=== PATIENT | male | born 1955 | race Caucasian/White ===

== ENCOUNTER 2016-11-13 04:18 | Emergency (ER) | payer MEDICARE ==
[2016-11-13] MEDS ORDERED: Ibuprofen 800 MG TAB ONE (04:40)
[2016-11-13] MEDS ORDERED: HYDROcodone/Acetaminophen 10/325 mg Tablet ONE (04:45)
[2016-11-13] MEDS ORDERED: Lorazepam 1 MG TAB ONE (05:18)
[2016-11-13] MEDS ORDERED: Ketorolac Tromethamine 30 MG/ML VIAL ONE (05:46)
--- NOTE | 2016-11-13 09:36 | ERRECORD ---
[facility] EMERGENCY RECORD HPI BACK CHIEF COMPLAINT: Patient presents for evaluation of pain, to the right lower back. (04:40 LHOD) HISTORIAN: History provided by patient. (04:40 LHOD) MECHANISM OF INJURY: No apparent mechanism of injury. (04:44 LHOD) LOCATION: Radiation to the back, RADIATING TO RIGHT BUTTOCK. (04:43 LHOD) QUALITY: Pain is sharp in nature, described as shooting. (04:43 LHOD) TIME COURSE: PT REPORTS SINCE 1987 HE HAS HAD LUMBAR BACK PROBLEMS AND PREVIOUS SURGERIES. HE REPORTS YESTERDAY AROUND 1600 HE STEPPED DOWN OFF A 2 STEPLADDER. DENIES HE STUMBLED, BUT REPORTS HE MUST HAVE TWISTED SINCE HE HAS HAD INCREASING RIGHT LUMBAR PAIN RADIATING DOWN RIGHT HIP / LEG. (04:40 LHOD) ASSOCIATED WITH: No associated abdominal pain, No associated bladder incontinence, No associated bowel incontinence, No associated dysuria, No associated fever, No associated inability to ambulate, No associated motor weakness, No associated numbness, No associated problems with urination, Associated with radiation of pain, to the right buttock, Associated with sciatica, on the right. (04:40 LHOD) EXACERBATED BY: Patient's condition exacerbated by flexion, Patient's condition exacerbated by movement, Patient's condition exacerbated by rotation, Patient's condition exacerbated by walking. (04:40 LHOD) RELIEVED BY: Patient's condition relieved by nothing, Patient's condition relieved by TOOK 2 HYDROCODONE APPROX. 1900. (04:40 LHOD) RISK FACTORS: No epidural bleed risk factors. (04:40 LHOD) ROS (04:44 LHOD) CONSTITUTIONAL: Historian denies fever. CARDIOVASCULAR: Historian denies chest pain. RESPIRATORY: Historian denies shortness of breath. GI: Historian denies abdominal pain, denies vomiting. GENITOURINARY MALE: Historian denies dysuria, denies incontinence. MUSCULOSKELETAL: Historian reports back pain, denies neck pain. SKIN: Historian denies rash. NEUROLOGIC: Historian denies focal weakness, denies headache. HEMO/LYMPHATIC: Historian denies easy bruising. NOTES: All systems reviewed, negative except as described above. PAST MEDICAL HISTORY MEDICAL HISTORY: Past medical history includes endocrine disease, hypothyroidism, Past medical history includes history of hypertension, which has been treated, Patient is compliant, Past medical history includes musculoskeletal disorder, chronic back pain, DISK PROBLEMS IN NECK AND LOWER BACK. Notes: States he had gout once before in sternum after CABG. (04:28 JDEA) MALE SURGICAL HISTORY: Surgical history of appendectomy, &a-1R&a+25V*p+0X*w0903L*c202B*c15G*c2P*p-0X&a-25V&a+1R Name: Ted Starr : 1955 M60 MedRec: [id number] AcctNum: [id number] Prepared: MonNov 22, 2016 09:35 by Interface Page [address] [facility] EMERGENCY RECORD Surgical history of coronary artery bypass graft surgery, four vessels, Surgical history of orthopedic surgery, BACK, NECK. (04:28 JDEA) PSYCHIATRIC HISTORY: Notes: Psychiatric history includes, depression, Psychiatric history includes patient currently being under outpatient treatment, no history of suicidal ideations, No history of suicide attempts, No history of hallucinations, No history of homicidal ideations, No history of violence towards others, No history of post-traumatic stress disorder, No history of psychosis. (04:28 JDEA) SOCIAL HISTORY: Patient denies drug use, Lives at home, with family, Patient denies alcohol use, Patient denies drug use, Patient currently uses tobacco, smokes cigarettes, daily, Patient smokes 1/2 packs per day, Social History includes. (04:28 JDEA) NOTES: Nursing records reviewed. (04:48 LHOD) KNOWN ALLERGIES No Known Drug Allergies CURRENT MEDICATIONS (04:29 JDEA) aspirin: TABLET : Strength - 325 mg : ORAL Patient Dose: 1 tab(s) Oral once a day. carvedilol: TABLET : Strength - 25 mg : ORAL Patient Dose: 25 mg Oral 2 times a day (with meals). levothyroxine: TABLET : Strength - 75 mcg : ORAL Patient Dose: 125 mcg Oral once a day. Dose increased. lisinopril: TABLET : Strength - 20 mg : ORAL Patient Dose: 10 mg Oral 2 times a day. Dose decreased. VITAL SIGNS VITAL SIGNS: BP: 171/91, Pulse: 82, Resp: 18, Temp: 98 (Oral), Pain: 10, O2 sat: 98 on Room Air, Time: 11/13/2016 04:25. (04:25 JDEA) BP: 170/89, Pulse: 78, Resp: 20, Pain: 9, O2 sat: 97 on Room Air, Time: 11/13/2016 05:36. (05:36 JDEA) PHYSICAL EXAM (04:45 LHOD) CONSTITUTIONAL: Vital Signs Reviewed, Patient afebrile, Pulse normal, Blood pressure, hypertensive, Respiratory rate normal, Patient appears, in severe pain distress, Patient alert and oriented to person, place and time, APPEAR MUCH OLDER THAN STATED AGE. STANDS SLIGHTLY STOOPED FORWARD. ABLE TO SLOWLY LAY ON STRETCHER. NECK: Neck exam included findings of normal range of motion, Trachea midline. RESPIRATORY CHEST: Respiratory exam included findings of no respiratory distress, Breath sounds clear. &a-1R&a+25V*p+0X*c6451W*c202B*c15G*c2P*p-0X&a-25V&a+1R Name: Ted Starr : 1955 M60 MedRec: [id number] AcctNum: [id number] Prepared: MonNov 22, 2016 09:35 by Interface Page [address] [facility] EMERGENCY RECORD CARDIOVASCULAR: Cardiovascular exam included findings of heart rate regular rate and rhythm. ABDOMEN MALE: Abdominal exam included findings of abdomen nontender, DISTENDED WITHOUT GUARDING. BACK: Tenderness, paraspinal to the right lower, Straight leg raise, with pain on the right at 30 degrees. LOWER EXTREMITY: Lower extremity exam included findings of inspection normal, Range of motion normal, Sensation intact, Pedal pulse normal, SOME DISCOMFORT WITH STRAIGHT LEG RAISING OF BOTH LEGS, BUT GREATER ON RIGHT. NEURO: Speech normal, ABLE TO STAND, BUT WALKED BENT FORWARD WITH OBVIOUS BACK PAIN. SKIN: no rash. MEDICATION ADMINISTRATION SUMMARY Drug Name: Toradol intramuscular, Dose Ordered: 30 mg, Route: Intramuscular, Status: Given, Time: 05:50 11/13/2016, Drug Name: Ativan oral, Dose Ordered: 1 mg, Route: Oral, Status: Given, Time: 05:22 11/13/2016, Drug Name: [place], Dose Ordered: 10 mg, Route: Oral, Status: Given, Time: 04:47 11/13/2016, Drug Name: ibuprofen, Dose Ordered: 800 mg, Route: Oral, Status: Given, Time: 04:44 11/13/2016, Detailed record available in Medication Service section. DOCTOR NOTES (05:18 LHOD) TEXT: 0515--PT STILL TRYING TO GET COMFORTABLE. REPORTS HAS HAD TO USE VALIUM AND STEROID IN PAST WHICH HELPED AFTER 3-4 DAYS. PROBLEM LIST No recorded problems DIAGNOSIS (05:46 LHOD) FINAL: PRIMARY: LUMBAR PAIN WITH SCIATICA RIGHT BUTTOCK. PRESCRIPTION (05:47 LHOD) Valium oral: TABLET : 5 mg : ORAL : Quantity: 1 Unit: tab(s) Route: ORAL Schedule: every 6 hours PRN Dispense: 10 May substitute. Refills: No Refills . NOTES: No Refills. DISPOSITION PATIENT: Disposition Type: Discharge, Disposition: *Discharge Home, Condition: Good. (05:46 LHOD) Patient left the department. (09:28 [facility] Wen: &a-1R&a+25V*p+0X*e3292S*c202B*c15G*c2P*p-0X&a-25V&a+1R Name: Ted Starr : 1955 M60 MedRec: [id number] AcctNum: [id number] Prepared: MonNov 22, 2016 09:35 by Interface Page [address] [facility] EMERGENCY RECORD STANLEY=EVANGELINA Patel, Nicole LHOD=MD Erwin, Ludin [facility]=EVANGELINA Song, Leon &a-1R&a+25V*p+0X*z1835N*c202B*c15G*c2P*p-0X&a-25V&a+1R Name: Ted Satrr : 1955 M60 MedRec: [id number] AcctNum: [id number] Prepared: MonNov 22, 2016 09:35 by Interface Page 4 of 4 pMD [facility]
--- NOTE | 2016-11-13 09:48 | PICIS ---
[facility] EMERGENCY RECORD TRIAGE (MonNov 13, 2016 04:27 JDEA) TRIAGE NOTES: pt in c/o recurrent back pain shoots down right leg. (MonNov 13, 2016 04:27 JDEA) PATIENT: NAME: Ted Starr, AGE: 60, GENDER: male, : Mon1955, TIME OF GREET: MonNov 13, 2016 04:19, PREFERRED LANGUAGE: Moldovan, ETHNICITY: Not or , [facility]: [facility], SSN: [id number], Zip Code: [address], KG WEIGHT: 90.72, PHONE: , , , PERSON ID: [id number], PCP: MD Rockwell Robert. (MonNov 13, 2016 04:27 JDEA) COMPLAINT: BACK PAIN. (MonNov 13, 2016 04:27 JDEA) ADMISSION: URGENCY: 4 Non Urgent, ADMISSION SOURCE: Home, TRANSPORT: Walk-in, BED: TRIAGE. (MonNov 13, 2016 04:27 JDEA) IMMUNIZATIONS: Flu vaccine up to date, Tetanus immunization up to date, Pneumococcal vaccine up to date. (04:28 JDEA) TRIAGE SCREENING: Patient denies suicidal ideation, Patient denies presence of domestic violence. (04:28 JDEA) PROVIDERS: TRIAGE NURSE: Nicole Patel RN. (MonNov 13, 2016 04:27 JDEA) VITAL SIGNS: BP 171/91, Pulse 82, Resp 18, Temp 98, (Oral), Pain 10, O2 Sat 98, on Room Air, Time 11/13/2016 04:25. (04:25 JDEA) PREVIOUS VISIT ALLERGIES: No Known Drug Allergies. (MonNov 13, 2016 04:27 JDEA) No Known Drug Allergies. (04:28 JDEA) KNOWN ALLERGIES No Known Drug Allergies CURRENT MEDICATIONS (04:29 JDEA) aspirin: TABLET : Strength - 325 mg : ORAL Patient Dose: 1 tab(s) Oral once a day. carvedilol: TABLET : Strength - 25 mg : ORAL Patient Dose: 25 mg Oral 2 times a day (with meals). levothyroxine: TABLET : Strength - 75 mcg : ORAL Patient Dose: 125 mcg Oral once a day. Dose increased. lisinopril: TABLET : Strength - 20 mg : ORAL Patient Dose: 10 mg Oral 2 times a day. Dose decreased. VITAL SIGNS VITAL SIGNS: BP: 171/91, Pulse: 82, Resp: 18, Temp: 98 (Oral), Pain: 10, O2 sat: 98 on Room Air, Time: 11/13/2016 04:25. (04:25 JDEA) BP: 170/89, Pulse: 78, Resp: 20, Pain: 9, O2 sat: 97 on Room Air, Time: 11/13/2016 05:36. (05:36 JDEA) NURSING ASSESSMENT: BACK (04:32 JDEA) CONSTITUTIONAL: Complex assessment performed, Patient arrives &a-1R&a+25V*p+0X*i1805G*c202B*c15G*c2P*p-0X&a-25V&a+1R Name: Ted Starr : 1955 M60 MedRec: [id number] AcctNum: [id number] Prepared: MonNov 22, 2016 09:35 by Interface Page 1 of 7 pMD [facility] EMERGENCY RECORD ambulatory, Gait steady, History obtained from patient, Patient appears, uncomfortable, Patient cooperative, Patient alert, Oriented to person, place and time, Skin warm, Skin dry, Skin, pale in color, Mucous membranes pink, Mucous membranes moist, Patient complains of back pain, pt in complains of back pain, states has had previous back surgeries, states that he was diagnosed with sciatic nerve pain. PAIN: aching pain, to the mid back, to the lower back, to the hips, to the sciatica, constant, on a scale 0-10 patient rates pain as 10. BACK: Back assessment findings include no complaints of tenderness, no paresthesias to extremities, Right radial pulse +3(easily palpated, considered normal), Left radial pulse +3(easily palpated, considered normal). NECK: Neck assessment findings include trachea midline, no jugular vein distention noted, Patient not in spinal immobilization on arrival. NOTES: Patient tolerated procedure well. SAFETY: Side rails up, Cart/Stretcher in lowest position, Call light within reach, Hospital ID band on. NURSING PROCEDURE: DISCHARGE NOTE (09:20 SCHI) DISCHARGE: Patient discharged to home, ambulating without assistance, driving self, unaccompanied, Summary of Care printed/ provided, Patient requested and was provided an electronic copy of Discharge Instructions, Transition record given to patient, Discharge instructions given to patient, Simple or moderate discharge teaching performed, Prescriptions given and instructions on side effects given, Medication reconciliation form given, Above person(s) verbalized understanding of discharge instructions and follow-up care, Patient treated and evaluated by physician. BELONGINGS: Belongings and valuables with patient at time of discharge include:, Belongings remain with patient, Valuables remain with patient. NOTES: Emotional support needed and given, Patient tolerated procedure well. Notes: PT IMPROVED, PT ENCOURAGED TO RETURN TO ER WITH NEW OR WORSENING SYMPTOMS. SAFETY: Side rails up, Cart/Stretcher in lowest position, Family at bedside, Hospital ID band on. NURSING PROCEDURE: NURSE NOTES (04:47 JDEA) NURSES NOTES: Notes: pt states will attempt to get a ride home, states is willing to wait the four hour wait time, states is aware that if he leaves after administration of narcotic that pd may be contacted, states will not leave without a ride or without completion of 4 hour wait period. MEDICATION ADMINISTRATION SUMMARY &a-1R&a+25V*p+0X*h8391V*c202B*c15G*c2P*p-0X&a-25V&a+1R Name: Ted Starr : 1955 M60 MedRec: [id number] AcctNum: [id number] Prepared: Laura Nov 22, 2016 09:35 by Interface Page 2 of 7 pMD [facility] EMERGENCY RECORD Drug Name: Toradol intramuscular, Dose Ordered: 30 mg, Route: Intramuscular, Status: Given, Time: 05:50 11/13/2016, Drug Name: Ativan oral, Dose Ordered: 1 mg, Route: Oral, Status: Given, Time: 05:22 11/13/2016, Drug Name: [place], Dose Ordered: 10 mg, Route: Oral, Status: Given, Time: 04:47 11/13/2016, Drug Name: ibuprofen, Dose Ordered: 800 mg, Route: Oral, Status: Given, Time: 04:44 11/13/2016, Detailed record available in Medication Service section. MEDICATION SERVICE Ativan oral: Order: Ativan oral (lorazepam) - Dose: 1 mg : Oral Ordered by: Ludin Hood MD Entered by: Ludin Hood MD [place] Nov 13, 2016 05:16 , Acknowledged by: Nicole Patel RN [place] Nov 13, 2016 05:17 Documented as given by: Nicole Patel RN [place] Nov 13, 2016 05:22 Patient, Medication, Dose, Route and Time verified prior to administration. Amount given: 1 tab, Site: Medication administered P.O., Correct patient, time, route, dose and medication confirmed prior to administration, Patient advised of actions and side-effects prior to administration, Allergies confirmed and medications reviewed prior to administration, Patient in position of comfort, Side rails up, Cart in lowest position, Call light in reach. ibuprofen: Order: ibuprofen - Dose: 800 mg : Oral Ordered by: Ludin Hood MD Entered by: Ludin Hood MD [place] Nov 13, 2016 04:37 , Acknowledged by: Nicole Patel RN [place] Nov 13, 2016 04:37 Documented as given by: Nicole Patel RN [place] Nov 13, 2016 04:44 Patient, Medication, Dose, Route and Time verified prior to administration. Amount given: 800mg, Site: Medication administered P.O., Correct patient, time, route, dose and medication confirmed prior to administration, Patient advised of actions and side-effects prior to administration, Allergies confirmed and medications reviewed prior to administration, Patient in position of comfort, Side rails up, Cart in lowest position, Call light in reach. [place]: Order: [place] (hydrocodone bitartrate/acetaminophen) - Dose: 10 mg : Oral Ordered by: Ludin Hood MD Entered by: Ludin Hood MD [place] Nov 13, 2016 04:37 , Acknowledged by: Nicole Patel RN [place] Nov 13, 2016 04:38 Documented as given by: Nicole Patel RN [place] Nov 13, 2016 04:47 Patient, Medication, Dose, Route and Time verified prior to administration. Amount given: 1 tab, Site: Medication administered P.O., Correct patient, time, route, dose and medication confirmed prior to administration, Patient advised of actions and side-effects prior to &a-1R&a+25V*p+0X*n1834O*c202B*c15G*c2P*p-0X&a-25V&a+1R Name: Ted Starr : 1955 M60 MedRec: [id number] AcctNum: [id number] Prepared: MonNov 22, 2016 09:35 by Interface Page 3 of 7 pMD [facility] EMERGENCY RECORD administration, Allergies confirmed and medications reviewed prior to administration, Patient in position of comfort, Side rails up, Cart in lowest position, Call light in reach. Toradol intramuscular: Order: Toradol intramuscular (ketorolac tromethamine) - Dose: 30 mg : Intramuscular Ordered by: Ludin Hood MD Entered by: MD Kiki Solis Nov 13, 2016 05:45 , Acknowledged by: EVANGELINA Johnson Nov 13, 2016 05:46 Documented as given by: Nicole Patel RN [place] Nov 13, 2016 05:50 Patient, Medication, Dose, Route and Time verified prior to administration. IM medication, Amount given: 30mg, Medication administered to right thigh, Correct patient, time, route, dose and medication confirmed prior to administration, Patient advised of actions and side-effects prior to administration, Allergies confirmed and medications reviewed prior to administration, Patient in position of comfort, Side rails up, Cart in lowest position, Call light in reach. HPI BACK CHIEF COMPLAINT: Patient presents for evaluation of pain, to the right lower back. (04:40 LHOD) HISTORIAN: History provided by patient. (04:40 LHOD) MECHANISM OF INJURY: No apparent mechanism of injury. (04:44 LHOD) LOCATION: Radiation to the back, RADIATING TO RIGHT BUTTOCK. (04:43 LHOD) QUALITY: Pain is sharp in nature, described as shooting. (04:43 LHOD) TIME COURSE: PT REPORTS SINCE 1987 HE HAS HAD LUMBAR BACK PROBLEMS AND PREVIOUS SURGERIES. HE REPORTS YESTERDAY AROUND 1600 HE STEPPED DOWN OFF A 2 STEPLADDER. DENIES HE STUMBLED, BUT REPORTS HE MUST HAVE TWISTED SINCE HE HAS HAD INCREASING RIGHT LUMBAR PAIN RADIATING DOWN RIGHT HIP / LEG. (04:40 LHOD) ASSOCIATED WITH: No associated abdominal pain, No associated bladder incontinence, No associated bowel incontinence, No associated dysuria, No associated fever, No associated inability to ambulate, No associated motor weakness, No associated numbness, No associated problems with urination, Associated with radiation of pain, to the right buttock, Associated with sciatica, on the right. (04:40 LHOD) EXACERBATED BY: Patient's condition exacerbated by flexion, Patient's condition exacerbated by movement, Patient's condition exacerbated by rotation, Patient's condition exacerbated by walking. (04:40 LHOD) RELIEVED BY: Patient's condition relieved by nothing, Patient's condition relieved by TOOK 2 HYDROCODONE APPROX. 1900. (04:40 LHOD) RISK FACTORS: No epidural bleed risk factors. (04:40 LHOD) ROS (04:44 LHOD) CONSTITUTIONAL: Historian denies fever. CARDIOVASCULAR: Historian denies chest pain. RESPIRATORY: Historian denies shortness of breath. &a-1R&a+25V*p+0X*t9534E*c202B*c15G*c2P*p-0X&a-25V&a+1R Name: Ted Starr : 1955 M60 MedRec: [id number] AcctNum: [id number] Prepared: Laura Nov 22, 2016 09:35 by Interface Page 4 of 7 pMD [facility] EMERGENCY RECORD GI: Historian denies abdominal pain, denies vomiting. GENITOURINARY MALE: Historian denies dysuria, denies incontinence. MUSCULOSKELETAL: Historian reports back pain, denies neck pain. SKIN: Historian denies rash. NEUROLOGIC: Historian denies focal weakness, denies headache. HEMO/LYMPHATIC: Historian denies easy bruising. NOTES: All systems reviewed, negative except as described above. PAST MEDICAL HISTORY MEDICAL HISTORY: Past medical history includes endocrine disease, hypothyroidism, Past medical history includes history of hypertension, which has been treated, Patient is compliant, Past medical history includes musculoskeletal disorder, chronic back pain, DISK PROBLEMS IN NECK AND LOWER BACK. Notes: States he had gout once before in sternum after CABG. (04:28 JDEA) MALE SURGICAL HISTORY: Surgical history of appendectomy, Surgical history of coronary artery bypass graft surgery, four vessels, Surgical history of orthopedic surgery, BACK, NECK. (04:28 JDEA) PSYCHIATRIC HISTORY: Notes: Psychiatric history includes, depression, Psychiatric history includes patient currently being under outpatient treatment, no history of suicidal ideations, No history of suicide attempts, No history of hallucinations, No history of homicidal ideations, No history of violence towards others, No history of post-traumatic stress disorder, No history of psychosis. (04:28 JDEA) SOCIAL HISTORY: Patient denies drug use, Lives at home, with family, Patient denies alcohol use, Patient denies drug use, Patient currently uses tobacco, smokes cigarettes, daily, Patient smokes 1/2 packs per day, Social History includes. (04:28 JDEA) NOTES: Nursing records reviewed. (04:48 LHOD) PHYSICAL EXAM (04:45 LHOD) CONSTITUTIONAL: Vital Signs Reviewed, Patient afebrile, Pulse normal, Blood pressure, hypertensive, Respiratory rate normal, Patient appears, in severe pain distress, Patient alert and oriented to person, place and time, APPEAR MUCH OLDER THAN STATED AGE. STANDS SLIGHTLY STOOPED FORWARD. ABLE TO SLOWLY LAY ON STRETCHER. NECK: Neck exam included findings of normal range of motion, Trachea midline. RESPIRATORY CHEST: Respiratory exam included findings of no respiratory distress, Breath sounds clear. CARDIOVASCULAR: Cardiovascular exam included findings of heart rate regular rate and rhythm. ABDOMEN MALE: Abdominal exam included findings of abdomen nontender, DISTENDED WITHOUT GUARDING. BACK: Tenderness, paraspinal to the right &a-1R&a+25V*p+0X*e5432Y*c202B*c15G*c2P*p-0X&a-25V&a+1R Name: Ted Starr : 1955 M60 MedRec: [id number] AcctNum: [id number] Prepared: Laura Nov 22, 2016 09:35 by Interface Page 5 of 7 pMD [facility] EMERGENCY RECORD lower, Straight leg raise, with pain on the right at 30 degrees. LOWER EXTREMITY: Lower extremity exam included findings of inspection normal, Range of motion normal, Sensation intact, Pedal pulse normal, SOME DISCOMFORT WITH STRAIGHT LEG RAISING OF BOTH LEGS, BUT GREATER ON RIGHT. NEURO: Speech normal, ABLE TO STAND, BUT WALKED BENT FORWARD WITH OBVIOUS BACK PAIN. SKIN: no rash. EVENTS TRANSFER: Triage to Emergency Triage. (Kiki Nov 13, 2016 04:27 JDEA) Emergency Triage to Main ED -04. (04:27 JDEA) Removed from Emergency Main ED -04. (09:28 SCHI) DOCTOR NOTES (05:18 LHOD) TEXT: 0515--PT STILL TRYING TO GET COMFORTABLE. REPORTS HAS HAD TO USE VALIUM AND STEROID IN PAST WHICH HELPED AFTER 3-4 DAYS. PROBLEM LIST No recorded problems DIAGNOSIS (05:46 LHOD) FINAL: PRIMARY: LUMBAR PAIN WITH SCIATICA RIGHT BUTTOCK. DISPOSITION PATIENT: Disposition Type: Discharge, Disposition: *Discharge Home, Condition: Good. (05:46 LHOD) Patient left the department. (09:28 SCHI) INSTRUCTION (05:50 LHOD) DISCHARGE: BACK PAIN W/ SCIATICA, RADICULOPATHY LUMBAR. FOLLOWUP: MD Luli, [facility], [address] [place] [id number], , Follow up with Primary Care Physician in 1 day. SPECIAL: IBUPROFEN 600-800 MG EVERY [address]TA[address] ROCKWELL IN THE MORNING FOR FOLLOW-UP. PRESCRIPTION (05:47 LHOD) Valium oral: TABLET : 5 mg : ORAL : Quantity: 1 Unit: tab(s) Route: ORAL Schedule: every 6 hours PRN Dispense: 10 May substitute. Refills: No Refills . NOTES: No Refills. IMAGING NARCOTIC RX: Image captured from scanner. (07:12 [facility] *DISCHARGE INSTRUCTIONS RECEIPT: Image captured from scanner. &a-1R&a+25V*p+0X*r6600N*c202B*c15G*c2P*p-0X&a-25V&a+1R Name: Ted Starr : 1955 M60 MedRec: [id number] AcctNum: [id number] Prepared: MonNov 22, 2016 09:35 by Interface Page 6 of 7 pMD [facility] EMERGENCY RECORD (:22 SCHI) *SUPPLY CHARGE SHEET: Image captured from scanner. (09:23 SCHI) ADMIN DIGITAL SIGNATURE: EVANGELINA Song, Leon. (09:28 SCHI) MD Hood Lefayne. (MonNov 22, 2016 09:27 LHOD) Wen: STANLEY=EVANGELINA Patel, Nicole PABLO=MD Erwin, Ludin RAMOS=EVANGELINA Song, Slinda &a-1R&a+25V*p+0X*m5430L*c202B*c15G*c2P*p-0X&a-25V&a+1R Name: Ted Starr : 1955 M60 MedRec: [id number] AcctNum: [id number] Prepared: Laura Nov 22, 2016 09:35 by Interface Page 7 of 7 pMD MTDD
== END 2016-11-13 09:20 | disposition home or self-care (01) ==
LOC: MADERS 04:18
DX: M54.41 Lumbago with sciatica, right side (principal); I10 Essential (primary) hypertension; E03.9 Hypothyroidism, unspecified; F32.9 Major depressive disorder, single episode, unspecified; F17.210 Nicotine dependence, cigarettes, uncomplicated; Z95.1 Presence of aortocoronary bypass graft; Z79.82 Long term (current) use of aspirin; Z79.899 Other long term (current) drug therapy
CPT/HCPCS: 96372; J1885

== ENCOUNTER 2017-02-16 08:57 | Emergency (ER) | payer MEDICARE ==
[~2017-02-16 08:57] MED LIST: Sodium Chloride 0.9% 1,000 ML BAG ONE
[2017-02-16 09:44] LABS: #Basophils 0.1 thou/uL (0.0-0.2); #Eosinphils 0.1 thou/uL (0.0-0.7); #Lymphocytes 1.7 thou/uL (1.20-3.40); #Monocytes 0.5 thou/uL (0.11-0.59); #Neutrophils 4.4 thou/uL (1.40-6.50); %Lymphocytes 25.8 % (21.0-51.0); %Monocytes 7.4 % (0.0-10.0); %Neutrophils 64.8 % (42.0-75.0); Hemoglobin 15.2 g/dL (14.0-18.0); Mean Corpuscular HGB CONC 35.1 g/dL (32.0-36.0); Mean Corpuscular Hemoglobin 31.4 pg (27.0-31.0); Mean Corpuscular Volume 89.3 fl (80.0-94.0); Mean Platelet Volume 8.8 fL (7.4-10.4); Platelet Count 181 thou/uL (130-400); RBC Distribution Width 10.7 % (11.5-14.5); Red Blood Cell (RBC) Count 4.83 mill/uL (4.70-6.10); White Blood Cell (WBC) Count 6.7 thou/uL (4.8-10.8)
[2017-02-16 09:53] LABS: PTT 27.5 SEC (22.9-36.1); Prothrombin Time 13.1 SEC (12.0-14.7)
[2017-02-16] MEDS ORDERED: Sodium Chloride 0.9% 100 ML BAG ONE (10:07)
[2017-02-16] MEDS ORDERED: Iopamidol 370 76% 125 ML VIAL FS ONE (10:07)
[2017-02-16 10:23] LABS: POC Occult Blood Neg QC Acceptable (Acceptable); POC Occult Blood Pos QC Acceptable (Acceptable)
[2017-02-16 10:26] LABS: ALT (SGPT) 19 U/L (8-55); AST (SGOT) 18 U/L (5-34); Albumin 4.3 g/dL (3.4-4.8); Alkaline Phosphatase 83 U/L (40-150); Anion Gap 17 mmol/L (10-20); BUN (Urea Nitrogen) 30 mg/dL (8.4-25.7); Bilirubin, Total 0.5 mg/dL (0.2-1.2); Calc. Creatinine Clearance 0 mL/min (70-130); Calcium 9.3 mg/dL (7.8-10.44); Carbon Dioxide 23 mmol/L (23-31); Chloride 103 mmol/L (98-107); Estimated GFR-MDRD 45; Globulin 2.2 g/dL (2.4-3.5); Glucose 129 mg/dL (80-115); Potassium 3.4 mmol/L (3.5-5.1); Protein, Total 6.5 g/dL (5.8-8.1); Sodium 140 mmol/L (136-145)
--- NOTE | 2017-02-16 12:17 | CT ---
CTA CHEST WITH IV CONTRAST AND 3D POSTPROCESSING CTA ABDOMEN WITH IV CONTRAST AND 3D POSTPROCESSING CTA PELVIS WITH IV CONTRAST AND 3D POSTPROCESSING: HISTORY: Weakness, nausea, aortic dissection protocol. Rule out abdominal aortic and thoracic aortic aneurys m and dissection. FINDINGS: Comparison is made with the exam of 02/15/15. The thoracoabdominal aorta demonstrates no evidence of aneurysmal dilatation. There is good opacifi cation without intimal flap to suggest dissection. The main pulmonary artery is well opacified witho ut filling defect to suggest main central pulmonary embolism. No pleural or pericardial effusions a re seen. No pneumothoraces, focal areas of consolidation, or lung masses are identified. No calcified gallstones are seen. Liver, spleen, and pancreas are normal. Bilateral adrenal hyperp lastic hyperplasia changes are stable. There is a right renal cyst. There is scarring in the left kidney with stable small renal cysts and nonobstructing tiny left renal calculus. There is good flow in the celiac axis, SMA, and SIMIN and right renal artery. Severe stenosis at the origin of the left renal artery is again seen. No free air, free fluid, or lymphadenopathy is seen in the abdomen or pelvis. the prostate is enlar ged. There are degenerative changes in the spine. Mild compression of L1 vertebral body is stable. Changes of median sternotomy are again seen. IMPRESSION: 1. No evidence of thoracoabdominal aortic aneurysm or dissection. 2. Stable bilateral adrenal hyperplasia. 3. Significant stenosis at the origin of the left renal artery. 4. Left renal scarring and nonobstructing left renal calculus. 5. Bilateral renal cysts. 6. Prostatic enlargement. POS: [facility]
== END 2017-02-16 12:15 | disposition home or self-care (01) ==
LOC: MADERS 08:57
DX: I95.9 Hypotension, unspecified (principal); E03.9 Hypothyroidism, unspecified; I10 Essential (primary) hypertension; R07.9 Chest pain, unspecified; F17.210 Nicotine dependence, cigarettes, uncomplicated; Z79.82 Long term (current) use of aspirin; Z79.899 Other long term (current) drug therapy
CPT/HCPCS: 71275; 80053; 83880; 84484; 85025; 85610; 85730; 93005; 96360; 96361; J7050

== ENCOUNTER 2018-10-28 20:19 | Emergency (ER) | payer MEDICARE ==
[2018-10-28] MEDS ORDERED: cloNIDine 0.1mg/24 Hour PATCH ONE (20:46)
[2018-10-28] MEDS ORDERED: Acetaminophen 500 MG TAB ONE (20:46)
[2018-10-28] MEDS ORDERED: cloNIDine 0.1 MG TAB ONE (20:47)
[2018-10-28] MEDS ORDERED: Carvedilol 6.25 MG TAB ONE (20:48)
[2018-10-28] MEDS ORDERED: Lisinopril 10 MG TAB ONE (20:48)
== END 2018-10-28 21:36 | disposition home or self-care (01) ==
LOC: MADERS 20:19
DX: I10 Essential (primary) hypertension (principal); E03.9 Hypothyroidism, unspecified; F32.9 Major depressive disorder, single episode, unspecified; F17.210 Nicotine dependence, cigarettes, uncomplicated; Z79.891 Long term (current) use of opiate analgesic; Z79.82 Long term (current) use of aspirin; Z79.899 Other long term (current) drug therapy
CPT/HCPCS: 99283

== ENCOUNTER 2023-08-11 11:46 | Emergency (ER) | payer MEDICARE ==
[2023-08-11] MEDS ORDERED: Ibuprofen 200 MG TAB ONE (12:39)
== END 2023-08-11 13:20 | disposition home or self-care (01) ==
LOC: MADERS 11:46
DX: M25.561 Pain in right knee (principal); E03.9 Hypothyroidism, unspecified; I10 Essential (primary) hypertension; F17.210 Nicotine dependence, cigarettes, uncomplicated; Z79.899 Other long term (current) drug therapy